=== PATIENT | male | born 1995 | race African-American/Black ===

== ENCOUNTER 2020-06-22 21:19 | Emergency (ER) | payer OTHER ==
--- NOTE | 2020-06-22 21:22 | PDOC ---
Rapid Medical Evaluation Time Seen by Provider: 06/22/20 21:21 Medical Evaluation: 06/22/20 21:21 I have performed a brief in-person evaluation of this patient. CC: lower back pain radiating to RLE; denies saddle anesthesia, incontinence PE: no focal findings Orders: toradol Patient will proceed to ED for further evaluation. Discharge Disposition - Diagnosis Back pain - Referrals - Patient Instructions - Post Discharge Activity
[2020-06-22] MEDS ORDERED: KETOROLAC TROMETHAMINE 30 MG/1 ML VIAL IM ONE (21:23)
[2020-06-22 21:24] VITALS: BP 118/72; PULSE 98; TEMP 99.6; BMI 23.5
[2020-06-22] MEDS ORDERED: KETOROLAC TROMETHAMINE 30 MG/1 ML VIAL ONE (21:28)
--- NOTE | 2020-06-22 21:53 | PDOC ---
History of Present Illness - General Chief Complaint: Back Pain Stated Complaint: BACK PAIN Time Seen by Provider: 06/22/20 21:21 - History of Present Illness Initial Comments: 06/22/20 21:51 24-year-old male without comorbidities presents for evaluation of low back pain with radicular symptoms into the anterior aspect of the right thigh no loss of bowel bladder function saddle paresthesias or systemic symptoms. Pain is going on for about a day without any precipitating traumatic event. Past History - Medical History Allergies/Adverse Reactions: Allergies Allergy/AdvReac Type Severity Reaction Status Date / Time No Known Allergies Allergy Verified 06/22/20 21:24 Home Medications: Ambulatory Orders Cyclobenzaprine HCl [Flexeril 10 mg] 10 mg PO HS PRN #10 tablet 06/22/20 Ibuprofen [Motrin -] 600 mg PO TID #30 tablet 06/22/20 COPD: No - Psycho-Social/Smoking History Smoking History: Never smoked - Substance Abuse Hx (Audit-C & DAST Scrn) How often the patient has a drink containing alcohol: Never Score: In Men: 4 or > Positive; In Women: 3 or > Positive: 0 Screen Result (Pos requires Nsg. Audit-10AR): Negative In the last yr the pt used illegal drug/Rx for NonMed reason: Yes Score: Yes response is considered Positive: 1 Screen Result (Positive result requires Nsg. DAST-10): Positive Review of Systems - Review of Systems Musculoskeletal: Yes: Back Pain *Physical Exam - Vital Signs Last Vital Signs Temp Pulse Resp BP Pulse Ox 99.6 F 98 H 18 118/72 99 06/22/20 21:21 06/22/20 21:21 06/22/20 21:21 06/22/20 21:21 06/22/20 21:21 - Physical Exam 06/22/20 21:52 Lumbar spine skin color temperature normal range of motion is slightly decreased. No midline tenderness. Moderate bilateral paralumbar musculature spasm and tenderness 5 out of 5 strength bilateral lower extremities without gross sensorimotor deficits thighs and calves are soft and nontender neurovascular intact ED Treatment Course - Medications Given in the ED: ED Medications Discontinued Medications Generic Name Dose Route Start Last Admin Trade Name Freq PRN Reason Stop Dose Admin Ketorolac Tromethamine 30 mg 06/22/20 21:23 08/11/20 21:42 Toradol Injection - IM 06/22/20 21:24 30 mg ONCE ONE Administration Medical Decision Making - Medical Decision Making 06/22/20 21:52 Motrin and Flexeril follow-up with orthopedics Toradol was helpful in the emergency room I have reviewed the pathophysiology with the patient. They are in agreement with the treatment plan all questions were answered to their satisfaction. Understanding for follow-up without fail was also conveyed to the patient. Again they are in agreement. Discharge - Discharge Information Problems reviewed: Yes Clinical Impression/Diagnosis: Back pain Condition: Stable Disposition: HOME - Admission No - Additional Discharge Information Prescriptions: Cyclobenzaprine HCl [Flexeril 10 mg] 10 mg PO HS PRN #10 tablet PRN Reason: Muscle Spasms Ibuprofen [Motrin -] 600 mg PO TID #30 tablet - Follow up/Referral Referrals: Chandler Garnica DO [Staff Physician] - - Patient Discharge Instructions Additional Instructions: Please take the medication as directed. The Motrin is 1 tablet 3 times a day with food. Discontinue the medication if it bothers her stomach. The Flexeril is 1 tablet before bedtime will make you sleepy. Return to the emergency room for worsening symptoms and without fail follow-up with orthopedic surgery in 1 to 2 days for further evaluation and treatment options. - Post Discharge Activity
== END 2020-06-22 22:04 | disposition home or self-care (01) ==
LOC: JERFT 21:19
PROC: 3E0333Z Introduction of Anti-inflammatory into Peripheral Vein, Percutaneous Approach (ICD-10-PCS; principal; 2020-06-22)
DX: M54.5 Low back pain (principal)
CPT/HCPCS: 99284-25

== ENCOUNTER 2024-05-15 03:24 | Emergency (ER) | payer OTHER ==
[2024-05-15 03:34] VITALS: RESP 16; BMI 23.4
[2024-05-15] MEDS ORDERED: AMOX TR/POT CLAV 875MG/125MG TABLETS (FP) ONE (03:37)
[2024-05-15] MEDS ORDERED: IBUPROFEN 600 MG TABLET (FP) PO ONE (03:37)
[2024-05-15] MEDS: IBUPROFEN 600 MG TABLET (FP) PO ONE (03:38)
[2024-05-15] MEDS: AMOX TR/POT CLAV 875MG/125MG TABLETS (FP) PO ONE (03:39)
[2024-05-15 03:45] VITALS: BP 125/88; PULSE 73; TEMP 98.5
== END 2024-05-15 03:53 | disposition home or self-care (01) ==
LOC: FER 03:24
DX: S61.431A Puncture wound without foreign body of right hand, initial encounter (principal); S61.239A Puncture wound without foreign body of unspecified finger without damage to nail, initial encounter; W54.0XXA Bitten by dog, initial encounter
CPT/HCPCS: 99283-25